=== PATIENT | female | born 1935 | race Hispanic/Latino ===

== ENCOUNTER 2017-11-11 12:29 | Emergency (ER) | payer MEDICARE, MEDICAID ==
[~2017-11-11] VITALS: Ht 162.6 cm; Wt 72.6 kg
[~2017-11-11 12:29] MED LIST: ARICEPT5 MG ORAL; ASPIR 8181 MG ORAL; BACLOFEN10 MG ORAL; EVISTA60 MG ORAL; EXFORGE 5-1601 EACH ORAL; LORATADINE10 M2 PO; METOPROLOL SUCC25 MG ORAL; MOBIC15 MG ORAL; UNOBMED
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
[2017-11-11] MEDS ORDERED: Morphine Sulfate 2mg/ml Inj IVP ONE (13:00)
[2017-11-11 14:07] VITALS: BP 163/66
[2017-11-11 15:36] VITALS: BP 145/63
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
[2017-11-11] MEDS ORDERED: MOBIC15 MG ORAL (16:13)
[2017-11-11 16:44] VITALS: BP 145/63
== END 2017-11-11 16:47 | disposition home or self-care (01) ==
LOC: EDBD 12:29 → EMR 12:52
DX: M25.552 Pain in left hip (principal); I10 Essential (primary) hypertension; J44.9 Chronic obstructive pulmonary disease, unspecified
CPT/HCPCS: 72192; 96374; 96375; 99284; J2270; J2405